=== PATIENT | male | born 1970 | race African-American/Black ===

== ENCOUNTER 2018-04-01 21:45 | Emergency (ER) | payer OTHER ==
[2018-04-01] MEDS ORDERED: Ketorolac INJ* 30 MG/ML 1 ML VIAL IV PUSH ONE (23:54)
[2018-04-01] MEDS ORDERED: NS 0.9% 1000 ML* 1,000 ML IV ONE (23:54)
[2018-04-02 00:28] LABS: Urine Appearance Clear; Urine Blood Negative (Negative); Urine Color Yellow; Urine Ketones Negative (Negative); Urine Protein Negative (Negative); Urine Specific Gravity 1.012 (1.010-1.030); Urine Urobilinogen Positive (Negative)
[2018-04-02 00:29] LABS: ABS Basophils 0.1 10^3/ul (0-0.2); ABS Eosinophils 0.1 10^3/ul (0-0.6); ABS Lymphocytes 2.8 10^3/ul (1.0-4.8); ABS Monocytes 0.4 10^3/ul (0-0.8); ABS Nucleated RBC 0 10^3/ul; Eosinophil % 2.2 % (0-6); Hematocrit 37 % (42-52); Hemoglobin 12.4 g/dl (14.0-18.0); Lymphocyte % 52.1 % (25-47); Mean Corpuscular HGB Conc 34 g/dl (31-36); Mean Corpuscular Hemoglobin 34 pg (27-31); Mean Corpuscular Volume 102 fL (80-94); Mean Platelet Volume 7.5 um3 (7.4-10.4); Nucleated Red Blood Cells % 0.3; Platelet Count 235 10^3/ul (150-450); Red Blood Count 3.61 10^6/ul (4.00-5.40); Red Cell Distribution Width 13 % (10.5-15); White Blood Count 5.4 10^3/ul (3.5-10.8)
[2018-04-02 00:43] LABS: EGFR Non-African American 71.8 (>60)
[2018-04-02] MEDS ORDERED: Magnesium CITRATE* 300 ML BTL PO ONE (00:47)
[2018-04-02] MEDS ORDERED: Bisacodyl SUPP* 10 MG SUPP PR ONE (00:48)
--- NOTE | 2018-04-02 00:52 | ED ---
Abdominal Pain/Male - HPI Summary HPI Summary: This is scribe Jon Patino documenting for attending Evangelist Vanessa MD. A 47 y/o male presents to ED c/o intermittent abdominal pain reaching 7/10 in severity. Additionally c/o cough. In the ED room, the patient has a pulse of 86 BPM, O2 saturation of 98% and blood pressure of 109/71. As per triage, "Pt co midumbilical pain for 10 days. Denies fever or nvd. Pt states today pain significantly worse. Scheduled for PMD on Monday. Pt drank carbonated drink tonight that exac pain". According to the patient, he has been experiencing intermittent abdominal pain for the past 2 week. At work tonight the pain because unbearable to the point where the patient did not want to wait for his appointment on 04/03. No prior surgeries. I, Dr. Vanessa personally performed the services described in this documentation as scribed in my presence and it is both accurate and complete. - History of Current Complaint Chief Complaint: EDAbdPain Stated Complaint: ABD PAIN Time Seen by Provider: 04/01/18 22:43 Hx Obtained From: Patient Onset/Duration: Sudden Onset, Lasting Weeks, Still Present, Worse Since Timing: Intermittent Severity Initially: Severe Severity Currently: Severe Pain Intensity: 7 Pain Scale Used: 0-10 Numeric Location: Diffuse Radiates: No Aggravating Factor(s): Nothing Alleviating Factor(s): Nothing Associated Signs And Symptoms: Positive: Cough - Allergies/Home Medications Allergies/Adverse Reactions: Allergies Allergy/AdvReac Type Severity Reaction Status Date / Time No Known Allergies Allergy Verified 04/03/16 14:34 PMH/Surg Hx/FS Hx/Imm Hx Endocrine/Hematology History: Denies: Hx Diabetes Cardiovascular History: Denies: Hx Hypertension, Hx Pacemaker/ICD Respiratory History: Reports: Hx Asthma Musculoskeletal History: Denies: Hx Rheumatoid Arthritis, Hx Osteoporosis Sensory History: Denies: Hx Hearing Aid Psychiatric History: Denies: Hx Panic Disorder - Immunization History Immunizations Up to Date: Yes Infectious Disease History: No Infectious Disease History: Denies: History Other Infectious Disease, Traveled Outside the [place] in Last 30 Days - Family History Known Family History: Positive: Other - No FHx CA or dialysis Family History: NON CONTRIBUTORY - Social History Alcohol Use: Occasionally Substance Use Type: Reports: Marijuana Smoking Status (MU): Light Every Day Tobacco Smoker Type: Cigarettes Amount Used/How Often: 3 cig./week Review of Systems Negative: Fever Positive: Cough Positive: Abdominal Pain All Other Systems Reviewed And Are Negative: Yes Physical Exam - Summary Physical Exam Summary: VITAL SIGNS: Reviewed. GENERAL: Patient is a well-developed and nourished male who is lying comfortable in the stretcher. Patient is not in any acute respiratory distress. HEAD AND FACE: No signs of trauma. No ecchymosis, hematomas or skull depressions. No sinus tenderness. EYES: PERRLA, EOMI x 2, No injected conjunctiva, no nystagmus. EARS: Hearing grossly intact. Ear canals and tympanic membranes are within normal limits. MOUTH: Oropharynx within normal limits. NECK: Supple, trachea is midline, no adenopathy, no JVD, no carotid bruit, no c- spine tenderness, neck with full ROM. CHEST: Symmetric, no tenderness at palpation LUNGS: Clear to auscultation bilaterally. No wheezing or crackles. CVS: Regular rate and rhythm, S1 and S2 present, no murmurs or gallops appreciated. ABDOMEN: Soft, non-tender. No signs of distention. No rebound no guarding, and no masses palpated. Hyperactive bowel sounds. EXTREMITIES: FROM in all major joints, no edema, no cyanosis or clubbing. NEURO: Alert and oriented x 3. No acute neurological deficits. Speech is normal and follows commands. SKIN: Dry and warm Triage Information Reviewed: Yes Vital Signs On Initial Exam: Initial Vitals Temp Pulse Resp BP Pulse Ox 99.0 F 55 14 118/71 98 04/01/18 21:47 04/01/18 21:47 04/01/18 21:47 04/01/18 21:47 04/01/18 21:47 Vital Signs Reviewed: Yes Diagnostics - Vital Signs Vital Signs Temp Pulse Resp BP Pulse Ox 04/01/18 21:47 99.0 F 55 14 118/71 98 - Laboratory Lab Results: Lab Results 04/01/18 04/02/18 04/02/18 Range/Units 23:20 00:10 00:10 WBC 5.4 (3.5-10.8) 10^3/ul RBC 3.61 L (4.00-5.40) 10^6/ul Hgb 12.4 L (14.0-18.0) g/dl Hct 37 L (42-52) % MCV 102 H (80-94) fL MCH 34 H (27-31) pg MCHC 34 (31-36) g/dl RDW 13 (10.5-15) % Plt Count 235 (150-450) 10^3/ul MPV 7.5 (7.4-10.4) um3 Neut % (Auto) 37.1 L (38-83) % Lymph % (Auto) 52.1 H (25-47) % Navarro % (Auto) 7.7 H (0-7) % Eos % (Auto) 2.2 (0-6) % Baso % (Auto) 0.9 (0-2) % Absolute Neuts (auto) 2.0 (1.5-7.7) 10^3/ul Absolute Lymphs (auto) 2.8 (1.0-4.8) 10^3/ul Absolute Monos (auto) 0.4 (0-0.8) 10^3/ul Absolute Eos (auto) 0.1 (0-0.6) 10^3/ul Absolute Basos (auto) 0.1 (0-0.2) 10^3/ul Absolute Nucleated RBC 0 10^3/ul Nucleated RBC % 0.3 Sodium 141 (135-145) mmol/L Potassium 4.3 (3.5-5.0) mmol/L Chloride 108 (101-111) mmol/L Carbon Dioxide 30 (22-32) mmol/L Anion Gap 3 (2-11) mmol/L BUN 20 (6-24) mg/dL Creatinine 1.10 (0.67-1.17) mg/dL Est GFR ( Amer) 86.8 (>60) Est GFR (Non-Af Amer) 71.8 (>60) BUN/Creatinine Ratio 18.2 (8-20) Glucose 86 (70-100) mg/dL Calcium 9.4 (8.6-10.3) mg/dL Magnesium 2.1 (1.9-2.7) mg/dL Total Bilirubin 0.80 (0.2-1.0) mg/dL AST 14 (13-39) U/L ALT 9 (7-52) U/L Alkaline Phosphatase 46 (34-104) U/L C-Reactive Protein < 1.00 (<8.01) mg/L Total Protein 6.6 (6.4-8.9) g/dL Albumin 4.3 (3.2-5.2) g/dL Globulin 2.3 (2-4) g/dL Albumin/Globulin Ratio 1.9 (1-3) Amylase 42 (29-103) U/L Lipase 26 (11.0-82.0) U/L Urine Color Yellow Urine Appearance Clear Urine pH 5.0 (5-9) Ur Specific Wayne 1.012 (1.010-1.030) Urine Protein Negative (Negative) Urine Ketones Negative (Negative) Urine Blood Negative (Negative) Urine Nitrate Negative (Negative) Urine Bilirubin Negative (Negative) Urine Urobilinogen Positive A (Negative) Ur Leukocyte Esterase Negative (Negative) Urine Glucose Negative (Negative) Result Diagrams: 04/02/18 00:10 04/02/18 00:10 Lab Statement: Any lab studies that have been ordered have been reviewed, and results considered in the medical decision making process. - Radiology ABDOMEN XR Radiology Interpretation Completed By: ED Physician - Constipation. Pending official report. Abdominal Pain Fem Course/Dx - Course Course Of Treatment: A 47 y/o male presents to ED c/o intermittent abdominal pain reaching 7/10 in severity. Additionally c/o cough. In the ED room, the patient has a pulse of 86 BPM, O2 saturation of 98% and blood pressure of 109/ 71. A Abdomen XR revealed constipation. In the ED course, the patient recieved Toradol, Citrate of Magnesia, Dulcolax and IV fluids. Patient will be discharged with a diagnosis of constipation. Patient is to follow up with PCP in 1-2 days. Patient is agreeable with this plan. - Diagnoses Provider Diagnoses: Constipation Discharge - Sign-Out/Discharge Documenting (check all that apply): Patient Departure - DISCHARGE - Discharge Plan Condition: Stable Disposition: HOME Patient Education Materials: Abdominal Pain (ED), Constipation (ED) Referrals: Ramona Madrid MD [Primary Care Provider] - 2 Days Additional Instructions: FOLLOW UP WITH PRIMARY CARE IN 1-2 DAYS. RETURN TO ED FOR ANY NEW OR WORSENING SYMPTOMS.
[2018-04-02 01:07] VITALS: BP 120/75
--- NOTE | 2018-04-02 08:13 | RAD ---
INDICATION: Abdominal pain. COMPARISON: There are no prior studies available for comparison. TECHNIQUE: Supine and upright views of the abdomen were obtained. FINDINGS: The small bowel and colon appear nondistended. No free intraperitoneal air is seen. There is a moderate amount of obtained stool. IMPRESSION: NO EVIDENCE FOR ACUTE FINDING. R0
== END 2018-04-02 01:05 | disposition home or self-care (01) ==
LOC: ED 21:45
DX: K59.00 Constipation, unspecified (principal); R05 Cough; F17.210 Nicotine dependence, cigarettes, uncomplicated; R10.9 Unspecified abdominal pain
CPT/HCPCS: 36415; 74019; 80053; 81003; 82150; 83690; 83735; 85025; 86140; 96374; 99282; A9270-GY

== ENCOUNTER 2018-09-07 14:56 | Emergency (ER) | payer OTHER ==
[2018-09-07 15:07] VITALS: BP 123/75
--- NOTE | 2018-09-07 15:22 | ED ---
HPI Chest Pain - HPI Summary HPI Summary: developed chest pain this morning, without associated activity, postive pleuritic component, pain also present with movement of neck , sitting up offers some relief - History of Current Complaint Chief Complaint: UCChestPain Time Seen by Provider: 09/07/18 15:01 Hx Obtained From: Patient Onset/Duration: Started Hours Ago Timing: Constant Initial Severity: Moderate Current Severity: Moderate Pain Intensity: 6 Chest Pain Location: Mid Sternal Chest Pain Radiates: No Character: Sharp/Stabbing Aggravating Factor(s): Movement, Deep Breaths, Recumbent Position Alleviating Factor(s): Nothing Associated Signs and Symptoms: Positive: Negative - Risk Factors Pulmonary Embolism Risk Factors: Negative - Allergy/Home Medications Allergies/Adverse Reactions: Allergies Allergy/AdvReac Type Severity Reaction Status Date / Time No Known Allergies Allergy Verified 09/07/18 15:05 PMH/Surg Hx/FS Hx/Imm Hx Endocrine/Hematology History: Denies: Hx Diabetes Cardiovascular History: Denies: Hx Hypertension, Hx Pacemaker/ICD Respiratory History: Reports: Hx Asthma Musculoskeletal History: Denies: Hx Rheumatoid Arthritis, Hx Osteoporosis Sensory History: Denies: Hx Hearing Aid Psychiatric History: Denies: Hx Panic Disorder Infectious Disease History: No Infectious Disease History: Denies: History Other Infectious Disease, Traveled Outside the [place] in Last 30 Days - Family History Known Family History: Positive: Other - No FHx CA or dialysis Family History: NON CONTRIBUTORY - Social History Alcohol Use: Occasionally Substance Use Type: Reports: Marijuana Substance Use Comment - Amount & Last Used: 3x week Smoking Status (MU): Former Smoker Type: Cigarettes Amount Used/How Often: 3 cig./week Review of Systems Gastrointestinal: Negative Genitourinary: Negative Musculoskeletal: Negative Skin: Negative Neurological: Negative All Other Systems Reviewed And Are Negative: Yes Physical Exam Triage Information Reviewed: Yes Vital Signs On Initial Exam: Initial Vitals Temp Pulse Resp BP Pulse Ox 37.1 C 66 18 123/75 99 09/07/18 15:02 09/07/18 15:02 09/07/18 15:02 09/07/18 15:02 09/07/18 15:02 Vital Signs Reviewed: Yes Appearance: Positive: Well-Appearing Skin: Positive: Warm Eyes: Positive: Normal ENT: Positive: Normal ENT inspection Neck: Positive: Supple Respiratory/Lung Sounds: Positive: Clear to Auscultation Cardiovascular: Positive: Normal Abdomen Description: Positive: Nontender Bowel Sounds: Positive: Present Musculoskeletal: Positive: Normal Diagnostics - Vital Signs Vital Signs Temp Pulse Resp BP Pulse Ox 09/07/18 15:02 37.1 C 66 18 123/75 99 - Laboratory Lab Statement: Any lab studies that have been ordered have been reviewed, and results considered in the medical decision making process. Chest Pain Course/Dx - Diagnoses Provider Diagnoses: Atypical chest pain Discharge - Sign-Out/Discharge Documenting (check all that apply): Patient Departure All imaging exams completed and their final reports reviewed: Yes - Discharge Plan Condition: Fair Disposition: HOME-RECOMMEND TO ED Referrals: Ramona Madrid MD [Primary Care Provider] - - Billing Disposition and Condition Condition: FAIR Disposition: Home-Recommend to ED
== END 2018-09-07 15:55 | disposition home health service (06) ==
LOC: UCEAST 14:56
DX: R07.89 Other chest pain (principal); Z87.891 Personal history of nicotine dependence
CPT/HCPCS: 71046; 99212; G0463

== ENCOUNTER 2019-01-28 15:01 | Emergency (ER) | payer OTHER ==
[2019-01-28 15:35] VITALS: BP 112/77
--- NOTE | 2019-01-28 15:58 | UC ---
Skin Complaint HPI - HPI Summary HPI Summary: 48 yo male presents with LEFT foot skin complaint. He tells me that he has athlete's foot at the toes of his left foot for years that comes and goes. He usually treats this with OTC antifungal cream, but has recently lost the cream and has not gotten any more. Over the last few days he has been itching his feet a lot more often than usual and noticed some redness and drainage to these areas. He is concerned about infection. Denies fever. - History of Current Complaint Chief Complaint: UCSkin Time Seen by Provider: 01/28/19 15:58 Stated Complaint: LEFT FOOR PAIN, SWELLING Hx Obtained From: Patient Onset/Duration: Gradual Onset Onset Severity: Mild Current Severity: Mild Pain Intensity: 1 Pain Scale Used: 0-10 Numeric - Allergy/Home Medications Allergies/Adverse Reactions: Allergies Allergy/AdvReac Type Severity Reaction Status Date / Time No Known Allergies Allergy Verified 01/28/19 15:35 Home Medications: Home Medications Ibuprofen [Advil] 400 mg PO Q8HR PRN 01/28/19 [History Confirmed 01/28/19] PMH/Surg Hx/FS Hx/Imm Hx - Additional Past Medical History Additional PMH: None - Surgical History Surgical History: None - Family History Known Family History: Positive: Non-Contributory - Social History Alcohol Use: Occasionally Substance Use Type: Marijuana Substance Use Comment - Amount & Last Used: 3x week Smoking Status (MU): Former Smoker Type: Cigarettes Amount Used/How Often: 3 cig./week Review of Systems All Other Systems Reviewed And Are Negative: Yes Constitutional: Positive: Negative Skin: Positive: Rash Respiratory: Positive: Negative Cardiovascular: Positive: Negative Neurovascular: Positive: Negative Neurological: Positive: Negative Psychological: Positive: Negative Physical Exam - Summary Physical Exam Summary: GENERAL: NAD. WDWN. No pain distress. SKIN: LEFT FOOT: Web spacing of all toes with erythematous raw appearing skin with scant clear/yellow purulent drainage. Mild TTP. No streaking or bleeding. NECK: Supple. Nontender. No lymphadenopathy. CHEST: No accessory muscle use. Breathing comfortably and in no distress. CV: Pulses intact. Cap refill <2seconds NEURO: Alert. PSYCH: Age appropriate behavior. Triage Information Reviewed: Yes Vital Signs: Initial Vital Signs Temp 98.5 F 01/28/19 15:30 Pulse 53 01/28/19 15:30 Resp 18 01/28/19 15:30 BP 112/77 01/28/19 15:30 Pulse Ox 97 01/28/19 15:30 Vital Signs Reviewed: Yes Course/Dx - Course Course Of Treatment: Tinea pedis with underlying mild wound infection. Will treat him with keflex and clotrimazole cream. - Diagnoses Provider Diagnosis: Tinea pedis Discharge - Sign-Out/Discharge Documenting (check all that apply): Patient Departure All imaging exams completed and their final reports reviewed: No Studies - Discharge Plan Condition: Stable Disposition: HOME Prescriptions: Cephalexin CAP* [Keflex CAP*] 500 mg PO BID #10 cap Clotrimazole 1% CREAM* [Clotrimazole 1%*] 1 applic TOPICAL BID #1 tube Patient Education Materials: Athlete's Foot (ED) Forms: *Work Release Referrals: Ramona Madrid MD [Primary Care Provider] - Additional Instructions: If you develop a fever, shortness of breath, chest pain, new or worsening symptoms - please call your PCP or go to the ED immediately. - Billing Disposition and Condition Condition: STABLE Disposition: Home
== END 2019-01-28 16:08 | disposition home or self-care (01) ==
LOC: UCEAST 15:01
DX: B35.3 Tinea pedis (principal); Z87.891 Personal history of nicotine dependence
CPT/HCPCS: 99211; G0463

== ENCOUNTER 2019-06-11 17:49 | Emergency (ER) | payer OTHER ==
[2019-06-11 18:14] VITALS: BP 110/67
--- NOTE | 2019-06-11 19:01 | UC ---
Skin Complaint HPI - HPI Summary HPI Summary: The patient is a 48-year-old male that removed a tick from his right side that has been attached for 2-3 days. Noticed it in the shower but thought it was a scab. He brought in the tick for examination and it was moderately engorged. - History of Current Complaint Chief Complaint: UCSkin Time Seen by Provider: 06/11/19 19:00 Stated Complaint: TICK/SKIN COMPLAINT Hx Obtained From: Patient Onset/Duration: Gradual Onset Timing: Constant Current Severity: None Pain Intensity: 0 Pain Scale Used: 0-10 Numeric Aggravating Factor(s): Nothing Alleviating Factor(s): Nothing Associated Signs & Symptoms: Positive: Negative Related History: Insect Bite/Sting - Allergy/Home Medications Allergies/Adverse Reactions: Allergies Allergy/AdvReac Type Severity Reaction Status Date / Time No Known Allergies Allergy Verified 06/11/19 18:15 Home Medications: Home Medications Amoxicillin 500 mg PO DAILY WITH MEAL 06/11/19 [History Confirmed 06/11/19] Clarithromycin [Clarithromycin ER] 500 mg PO DAILY WITH MEAL 06/11/19 [History Confirmed 06/11/19] Lansoprazole [Prevacid] 30 mg PO DAILY WITH MEAL 06/11/19 [History Confirmed ] PMH/Surg Hx/FS Hx/Imm Hx Previously Healthy: Yes GI/ History: Gastroesophageal Reflux - Surgical History Surgical History: None - Family History Known Family History: Positive: Other - No FHx CA or dialysis, Non-Contributory Family History: NON CONTRIBUTORY - Social History Alcohol Use: Weekly Substance Use Type: Marijuana Substance Use Comment - Amount & Last Used: 3x week Smoking Status (MU): Light Every Day Tobacco Smoker Type: Cigarettes Amount Used/How Often: 3 cig./week Review of Systems All Other Systems Reviewed And Are Negative: Yes Constitutional: Positive: Negative Skin: Positive: Negative Eyes: Positive: Negative ENT: Positive: Negative Respiratory: Positive: Negative Cardiovascular: Positive: Negative Gastrointestinal: Positive: Negative Genitourinary: Positive: Negative Motor: Positive: Negative Neurovascular: Positive: Negative Musculoskeletal: Positive: Negative Neurological: Positive: Negative Psychological: Positive: Negative Physical Exam Triage Information Reviewed: Yes Appearance: Well-Appearing, No Pain Distress, Well-Nourished Vital Signs: Initial Vital Signs Temp 98.2 F 06/11/19 18:11 Pulse 59 06/11/19 18:11 Resp 18 06/11/19 18:11 BP 110/67 06/11/19 18:11 Pulse Ox 99 06/11/19 18:11 Vital Signs Reviewed: Yes Eyes: Positive: Conjunctiva Clear ENT: Positive: Hearing grossly normal. Negative: Nasal congestion, Nasal drainage, Tonsillar exudate, Trismus, Muffled voice, Hoarse voice Dental Exam: Normal Neck: Positive: Supple Respiratory: Positive: Lungs clear, Normal breath sounds, No respiratory distress Cardiovascular: Positive: RRR, No Murmur Musculoskeletal: Positive: ROM Intact, No Edema Neurological: Positive: Alert Psychological Exam: Normal Skin Exam: Normal Course/Dx - Course Course Of Treatment: will prophylax for LD - Diagnoses Provider Diagnosis: Tick bite Discharge ED - Sign-Out/Discharge Documenting (check all that apply): Patient Departure All imaging exams completed and their final reports reviewed: No Studies - Discharge Plan Condition: Stable Disposition: HOME Prescriptions: DOXYcycline CAP(*) [DOXYcycline 100MG CAP(*)] 200 mg PO ONCE #2 cap Patient Education Materials: Tick Bite (ED) Referrals: Ramona Madrid MD [Primary Care Provider] - If Needed - Billing Disposition and Condition Condition: STABLE Disposition: Home
== END 2019-06-11 19:10 | disposition home or self-care (01) ==
LOC: UCEAST 17:49
DX: T14.8XXA Other injury of unspecified body region, initial encounter (principal); K21.9 Gastro-esophageal reflux disease without esophagitis; F17.210 Nicotine dependence, cigarettes, uncomplicated; X58.XXXA Exposure to other specified factors, initial encounter; Y92.9 Unspecified place or not applicable; Z79.899 Other long term (current) drug therapy
CPT/HCPCS: 99212; G0463